=== PATIENT | male | born 1990 | race Caucasian/White ===

== ENCOUNTER 2025-01-13 10:32 | Emergency (ER) | payer BC, SELFPAY ==
[2025-01-13 10:37] VITALS: BP 135/84
[2025-01-13 11:15] VITALS: BMI 23.9
--- NOTE | 2025-01-13 13:15 | ED.GENMED ---
History of Present Illness
General
Chief Complaint: Rectal Bleeding
Source: patient
Exam Limitations: none
Time Seen by Provider: 01/13/25 13:04
Nursing documentation reviewed up to this point in time: agreed with
History of Present Illness
History of Present Illness:
Patient is a healthy 34-year-old male who presents to the emergency department for evaluation of rectal bleeding. Patient states he had a bowel movement this morning and noticed bright red blood in the toilet bowl. He did not notice any blood
mixed in with his stool. He denies any straining or pain with bowel movements. He denies any lightheadedness, dizziness, shortness of breath, or weakness.
He has not had any recent fever, nausea/vomiting, or abdominal pain. No diarrhea or constipation. He has a normal appetite. No urinary complaints.
He has not had since the initial morning.
He states that he is feeling in his normal state of health. He has no history of similar symptoms. He has never had a colonoscopy.
Patient states that he has been lifting many heavy objects both at work and at home recently and is wondering if this may be contributing.
Review of Systems
Review of Systems
Allergies reviewed?: Yes
All Other Systems: ROS reviewed and negative except as documented in HPI and ROS
Phy Exam
Physical Exam
Physical Exam:
Vitals: Mildly hypertensive, otherwise vital signs stable. Afebrile
General: Patient is very well appearing, no acute distress
Skin: Warm and dry, no rashes or lesions
Head: Normocephalic, atraumatic
Eyes: Sclera nonicteric. EOMs intact. No nystagmus.
Throat: Protecting airway
Neck: Normal ROM, no cervical spine tenderness, no meningismus
Cardiac: Regular rate and rhythm, no murmurs.
Pulm: Normal respiratory effort, no wheezes, rales, rhonchi heard on exam
Abdomen: Abdomen soft and nontender. No rebound tenderness or guarding.
Rectal: No external hemorrhoids visualized on exam. Soft brown heme-negative stool in vault. No jillian bleeding
Extremities: No evidence of cyanosis or edema
Neuro: AAOx3. Grossly intact.
Psychiatric: Normal affect.
Course
Orders/Labs/Results
Orders:
Orders
01/13/25 13:16
Basic Metabolic Panel Urgent
Complete Blood Count/With Diff Urgent
Abnormal Lab Results
01/13/25
13:16
Absolute Monos (auto) 0.7 H 10^3/uL
(0.1-0.6)
Carbon Dioxide 31 H mmol/L
(22-30)
01/13/25 13:16
01/13/25 13:16
Vital Signs
Initial and Last Documented VS:
Initial Vital Signs
Temp Pulse Resp BP Pulse Ox
98.3 F 75 18 135/84 98
01/13/25 10:37 01/13/25 10:37 01/13/25 10:37 01/13/25 10:37 01/13/25 10:37
Last Documented Vital Signs
Temp Pulse Resp BP Pulse Ox
98.3 F 63 18 130/79 99
01/13/25 10:37 01/13/25 13:34 01/13/25 13:34 01/13/25 13:34 01/13/25 13:34
MDM/Problems Addressed
Differential Diagnosis Includes:
Not limited to: Lower GI bleeding including diverticulosis, internal hemorrhoid, external hemorrhoid, anal fissure, malignancy, anemia, etc.
MDM/Problems Addressed:
34-year-old male presents with a single episode of painless bright red blood in the toilet bowl following a bowel movement earlier today. Denies associated symptoms such as abdominal pain, rectal pain, fever, lightheadedness, or shortness of breath.
Patient is hemodynamically stable and well-appearing. Physical exam unremarkable. Abdomen is soft, non-tender, and non-distended. Rectal exam revealed soft brown stool, hemoccult negative. No evidence of external hemorrhoids or active bleeding on
exam.
Laboratory studies are unremarkable. Hemoglobin is within normal limits, and no electrolyte or metabolic derangements noted. Given absence of abdominal pain or concerning exam findings, CT imaging is not indicated at this time.
Clinical presentation is consistent with low-risk, mild lower GI bleeding. Most likely etiologies include internal hemorrhoids or mild diverticular bleeding. No evidence of active or ongoing bleeding, hemodynamic instability, or infectious process.
Given he is hemodynamically stable without evidence of current bleeding, not anticoagulated � feel stable for discharge home.
Patient discharged in stable condition with reassurance. Advised to follow up with primary care provider, and with GI for further evaluation (possible colonoscopy) if bleeding recurs or persists. Strict return precautions discussed.
Chronic conditions affecting care:
N/A
Acute Exacerbation and/or Progression of Chronic Illness:
N/A
*Pulse Oximetry
SaO2: 98
Oxygen Mode of Delivery: Room air
Patient hypoxic: no
*EKG
Interpreted by ED Provider?: NA
*Janitorial Services Supervisor Interpretation
Rate: Janitorial Services Supervisor- N/A
*Critical Care Note
Total Time (30-74mins, 75-104mins- exclusive of procedures): Not Applicable
ED Attending Note
-
Portions of this chart may have been created with voice recognition software.� Occasional wrong word or��sound alike� substitutions may have occurred due to the inherent limitations of voice recognition software.
Discharge Plan
Departure
Patient Disposition: Home (Routine Discharge)
Date of Disposition: 01/13/25
Time of Disposition: 14:00
Patient with high blood pressure during this ER visit?: Yes
Condition: Good
Discharge Problem:
Rectal bleeding
Instructions: Bloody Stools, Adult (DC), BLOOD PRESSURE
Referrals:
Gregory Curtis MD [Active, Gastroenterology] - Next open appointment
Radha Lynne DO [Family Provider, Family Practice] - Next open appointment
Activity Restrictions/Additional Instructions:
RETURN TO THE EMERGENCY DEPARTMENT ANY PERSISTENT RECTAL BLEEDING, ABDOMINAL PAIN OR FEVERS, LIGHTHEADEDNESS/DIZZINESS OR SHORTNESS OF BREATH, SIGNIFICANT WEAKNESS, OR ANY OTHER CONCERNS
- Your lab work in the emergency department showed no acute abnormalities. Your hemoglobin was normal.
- Please stay well-hydrated. Take MiraLAX as needed for any constipation. Follow balanced diet
- Follow-up with your primary care and GI for further evaluation/management. You may require imaging and/or a colonoscopy if symptoms persist
Monitor your symptoms closely and return to the emergency department with any acute worsening/new symptoms or any other concerns
Interventions
Interventions:
*Risk Screen - Suicide Last Done: 01/13/25 10:37
*General Assessment Last Done: 01/13/25 10:37
*Neglect/Abuse Screening Last Done: 01/13/25 14:12
*ED- Fall Risk Assessment Last Done: 01/13/25 11:15
*ED COVID-19 Vaccine History Last Done: 01/13/25 11:15
*ED Influenza Vaccine History Last Done: 01/13/25 11:15
*Nursing Disposition Last Done: 01/13/25 14:12
[facility]-Dzcqekkl[facility] Assessment Last Done: 01/13/25 11:16
ED- Cardiac Assessment Last Done: 01/13/25 11:16
ED- Pulmonary Assessment Last Done: 01/13/25 11:16
Discharge Date and Time
Discharge Date/Time: 01/13/25 14:13
Print Language: SLOVENIAN
[2025-01-13 13:25] LABS: Hematocrit 48.5 % (39.0-52.0); Hemoglobin 16.9 g/dL (13.0-18.0); Mean Corp Hgb Conc. 34.8 g/dL (33.0-37.0); Mean Corpuscular Volume 85.8 fL (80.0-94.0); Nucleated Red Blood Cells % 0 % (-); Platelet Count 168 10^3/uL (130-400); Red Cell Dist. Width 11.9 % (11.5-14.5)
[2025-01-13 13:34] VITALS: BP 130/79
[2025-01-13 13:44] LABS: Blood Urea Nitrogen 19 mg/dl (9-20); Calcium 10.1 mg/dl (8.4-10.2); Carbon Dioxide 31 mmol/L (22-30); Chloride 102 mmol/L (98-107); Estimated Creatinine Clearance > 125 ml/min; Glucose 97 mg/dl (70-99); Sodium 141 mmol/L (135-145); eGFR > 60.00
== END 2025-01-13 14:13 | disposition home or self-care (01) ==
LOC: EMR 10:32
PROVIDERS: Physician Assistant; EMERGENCY PHYSICIAN Student in an Organized Health Care Education/Training Program; FAMILY PHYSICIAN Family Medicine
DX: K62.5 Hemorrhage of anus and rectum (principal)
CPT/HCPCS: 99283; 80048; 85025